=== PATIENT | female | born 1970 | race Caucasian/White ===

== ENCOUNTER → 2023-10-24 15:23 | Outpatient (REF) | payer OTHER, SELFPAY | LOC: HWRAD 15:23 | PROVIDERS: ATTENDING PHYSICIAN Nurse Practitioner Adult Health | DX: L02.612 Cutaneous abscess of left foot (principal); L03.116 Cellulitis of left lower limb | CPT/HCPCS: 73610; 73630 ==

== ENCOUNTER → 2024-06-11 08:22 | Outpatient (REF) | payer OTHER, SELFPAY | LOC: RCS 08:22 | PROVIDERS: ATTENDING PHYSICIAN Internal Medicine Cardiovascular Disease; FAMILY PHYSICIAN Nurse Practitioner Adult Health | DX: R00.0 Tachycardia, unspecified (principal); E11.9 Type 2 diabetes mellitus without complications; E78.00 Pure hypercholesterolemia, unspecified | CPT/HCPCS: 93225; 93226 ==

== ENCOUNTER → 2024-06-25 15:40 | Outpatient (REF) | payer OTHER, SELFPAY | LOC: HWRCS 15:40 | PROVIDERS: ATTENDING PHYSICIAN Internal Medicine Cardiovascular Disease; FAMILY PHYSICIAN Nurse Practitioner Adult Health | DX: R00.0 Tachycardia, unspecified (principal); E11.9 Type 2 diabetes mellitus without complications; E78.00 Pure hypercholesterolemia, unspecified; R06.02 Shortness of breath | CPT/HCPCS: 93306 ==

== ENCOUNTER → 2024-06-29 07:00 | Outpatient (REF) | payer OTHER, SELFPAY | LOC: DHCBC/DCA 07:00 | PROVIDERS: ATTENDING PHYSICIAN Internal Medicine Cardiovascular Disease; FAMILY PHYSICIAN Nurse Practitioner Adult Health | DX: R00.0 Tachycardia, unspecified (principal); E11.9 Type 2 diabetes mellitus without complications; E78.00 Pure hypercholesterolemia, unspecified; R06.02 Shortness of breath; Z87.891 Personal history of nicotine dependence | CPT/HCPCS: 71046; 78452; 93017; A9500; J2785 ==

== ENCOUNTER → 2024-09-20 17:54 | Outpatient (REF) | payer OTHER, SELFPAY | LOC: RAD 17:54 | PROVIDERS: ATTENDING PHYSICIAN Nurse Practitioner Adult Health | DX: J45.20 Mild intermittent asthma, uncomplicated (principal) | CPT/HCPCS: 71046 ==

== ENCOUNTER 2025-07-25 06:19 | Day surgery (SDC) | payer OTHER, SELFPAY ==
[2025-07-25 08:52] LABS: Glucose - Point of Care 130 mg/dl (70-99)
== END 2025-07-25 10:50 | disposition home or self-care (01) ==
LOC: GI 06:19
PROVIDERS: ATTENDING PHYSICIAN Internal Medicine
DX: Z12.11 Encounter for screening for malignant neoplasm of colon (principal); K57.30 Diverticulosis of large intestine without perforation or abscess without bleeding; R13.10 Dysphagia, unspecified; R12 Heartburn; K22.89 Other specified disease of esophagus; K29.70 Gastritis, unspecified, without bleeding; K62.1 Rectal polyp; K29.50 Unspecified chronic gastritis without bleeding; K20.90 Esophagitis, unspecified without bleeding
CPT/HCPCS: 45380; 43239; 82962; 88305; 88342